=== PATIENT | female | born 1985 | race Caucasian/White ===

== ENCOUNTER 2017-06-18 10:48 | Emergency (ER) | payer MEDICAID, OTHER ==
[~2017-06-18] VITALS: Ht 170.2 cm; Wt 154.2 kg
[2017-06-18 10:55] VITALS: BP_SYST 200
[2017-06-18 11:24] LABS: BASOPHILS # (AUTO) 0.2 K/uL (0.0-0.2); EOSINOPHILS # (AUTO) 0.2 K/uL (0.0-0.4); HEMOGLOBIN 12.8 g/dL (12.0-16.0); LYMPHOCYTES # (AUTO) 2.2 K/uL (1.0-5.5)
[2017-06-18 11:26] LABS: EOSINOPHILS % (AUTO) 1.7 % (0.0-4.0); HEMATOCRIT 38.6 % (36-48); LYMPHOCYTES % (AUTO) 20.6 % (20.5-51.5); MEAN CORPUSCULAR HEMOGLOBIN 28 pg (27-31); MEAN CORPUSCULAR HGB CONC 33 % (32-36); MEAN CORPUSCULAR VOLUME 83 fL (79.0-98.0); MONOCYTES # (AUTO) 1.1 K/uL (0.0-1.0); MONOCYTES % (AUTO) 10.1 % (1.7-9.3); NEUTROPHILS % (AUTO) 65.6 % (40.0-70.0); PLATELET COUNT (AUTO) 322 K/uL (130-430); RED BLOOD CELL COUNT(AUTO) 4.64 MIL/uL (4.2-6.2); RED CELL DISTRIBUTION WIDTH 13.5 % (9.0-15.0); WHITE BLOOD COUNT (AUTO) 10.8 K/uL (4.8-10.8)
[2017-06-18 11:29] LABS: BILIRUBIN,URINE NEGATIVE (NEGATIVE); BLOOD, URINE 2+ (NEGATIVE); CLARITY/URINE HAZY (CLEAR); COLOR,URINE YELLOW (YELLOW); GLUCOSE,URINE NEGATIVE (NEGATIVE); KETONES,URINE NEGATIVE (NEGATIVE); LEUKOCYTE ESTERASE ,URINE NEGATIVE (NEGATIVE); NITRITE, URINE NEGATIVE (NEGATIVE); PH,URINE 7.5 (5.0-8.0); PROTEIN URINE NEGATIVE (NEGATIVE); UROBILINOGEN,URINE 0.2 (0.2-1.0)
[2017-06-18 11:40] LABS: BACTERIA,URINE RARE /HPF (None Seen); RBC,URINE 0-3 /HPF (0-3); URINE AMORPHOUS PHOSPHATES 2+ /HPF (None Seen)
[2017-06-18 11:43] LABS: PROTHROMBIN TIME 10.2 SECS (9.5-12.5)
[2017-06-18] MEDS ORDERED: ACETAMINOPHEN 500 MG TABLET PO ONE (11:45)
[2017-06-18 11:48] LABS: CALCIUM 9.1 mg/dL (8.4-11.0); CREATININE 0.85 mg/dL (0.55-1.30); POTASSIUM 4.2 mmol/L (3.5-5.1)
[2017-06-18 11:52] LABS: ALBUMIN 3.5 g/dL (3.4-4.8); TOTAL BILIRUBIN 0.3 mg/dL (0.0-1.0)
[2017-06-18] MEDS ORDERED: ASPIRIN 325 MG TABLET PO ONE (12:30)
[2017-06-18] MEDS ORDERED: HYDROcodone/ACETAMIN 10-325 MG TAB PO ONE (13:15)
[2017-06-18] MEDS ORDERED: metroNIDAZOLE 500 MG TABLET PO ONE (14:15)
[2017-06-18] MEDS ORDERED: CIPROFLOXACIN HCL 500 MG TABLET PO ONE (14:15)
[2017-06-18] MEDS ORDERED: CIPROFLOXACIN HCL 500 MG TABLET ONE (14:23)
[2017-06-18 14:56] VITALS: BP_SYST 142
== END 2017-06-18 14:56 | disposition home or self-care (01) ==
LOC: SED 10:48
DX: K57.92 Diverticulitis of intestine, part unspecified, without perforation or abscess without bleeding (principal)
CPT/HCPCS: 36415; 76830-TC; 76857; 80053; 81000-TC; 81025; 82150-TC; 83690-TC; 85025; 85610-TC; 99285

== ENCOUNTER 2018-01-18 20:25 | Emergency (ER) | payer MEDICAID, OTHER ==
[~2018-01-18] VITALS: Ht 170.2 cm; Wt 158.8 kg
[2018-01-18 20:30] VITALS: BP_SYST 161
[2018-01-18] MEDS ORDERED: NACL 0.9% 1,000 ML IV ONE (22:07)
[2018-01-18] MEDS ORDERED: MAG HYDROX/AL HYDROX/SIMETH 30 ML, BELLADONNA ALKALOIDS/PHENOBARB 10 ML, LIDOCAINE VISC... PO ONE ×3 (22:15)
[2018-01-18] MEDS ORDERED: METOCLOPRAMIDE HCL 10 MG/2 ML VIAL IVP ONE (22:15)
[2018-01-18] MEDS ORDERED: DIPHENHYDRAMINE INJ 50 MG/ML VIAL IVP ONE (22:15)
[2018-01-18] MEDS ORDERED: FAMOTIDINE PF 20 MG/2 ML VIAL IVP ONE (22:15)
[2018-01-18 22:20] LABS: BILIRUBIN,URINE NEGATIVE (NEGATIVE); BLOOD, URINE 1+ (NEGATIVE); CLARITY/URINE CLEAR (CLEAR); COLOR,URINE YELLOW (YELLOW); GLUCOSE,URINE NEGATIVE (NEGATIVE); KETONES,URINE 1+ (NEGATIVE); LEUKOCYTE ESTERASE ,URINE NEGATIVE (NEGATIVE); NITRITE, URINE NEGATIVE (NEGATIVE); PH,URINE 8.5 (5.0-8.0); PROTEIN URINE 1+ (NEGATIVE); UROBILINOGEN,URINE 0.2 (0.2-1.0)
[2018-01-18 22:27] LABS: BACTERIA,URINE FEW /HPF (None Seen); RBC,URINE 0-3 /HPF (0-3); WBC,URINE 0-3 /HPF (0-3)
[2018-01-18 22:56] LABS: BASOPHILS % (AUTO) 0.1 % (0.0-2.0); EOSINOPHILS # (AUTO) 0.1 K/uL (0.0-0.4); EOSINOPHILS % (AUTO) 0.7 % (0.0-4.0); HEMATOCRIT 42.1 % (36-48); HEMOGLOBIN 13.9 g/dL (12.0-16.0); LYMPHOCYTES # (AUTO) 1.8 K/uL (1.0-5.5); LYMPHOCYTES % (AUTO) 10.7 % (20.5-51.5); MEAN CORPUSCULAR HEMOGLOBIN 27 pg (27-31); MEAN CORPUSCULAR HGB CONC 33 % (32-36); MEAN CORPUSCULAR VOLUME 83 fL (79.0-98.0); MONOCYTES # (AUTO) 1.5 K/uL (0.0-1.0); MONOCYTES % (AUTO) 8.6 % (1.7-9.3); NEUTROPHILS # (AUTO) 13.5 K/uL (1.8-7.7); NEUTROPHILS % (AUTO) 79.9 % (40.0-70.0); PLATELET COUNT (AUTO) 355 K/uL (130-430); RED BLOOD CELL COUNT(AUTO) 5.08 MIL/uL (4.2-6.2); RED CELL DISTRIBUTION WIDTH 13.8 % (9.0-15.0); WHITE BLOOD COUNT (AUTO) 16.9 K/uL (4.8-10.8)
[2018-01-18 23:08] LABS: CALCIUM 9.3 mg/dL (8.4-11.0); CREATININE 0.79 mg/dL (0.55-1.30); POTASSIUM 3.7 mmol/L (3.5-5.1)
[2018-01-18 23:12] LABS: ALBUMIN 3.9 g/dL (3.4-4.8); TOTAL BILIRUBIN 0.5 mg/dL (0.0-1.0)
[2018-01-19] MEDS ORDERED: MORPHINE 4 MG/ML INJ. SYRINGE IVP ONE (00:30)
[2018-01-19 01:40] VITALS: BP_SYST 142
== END 2018-01-19 01:40 | disposition home or self-care (01) ==
LOC: SED 20:25
DX: R10.13 Epigastric pain (principal); R11.2 Nausea with vomiting, unspecified; R19.7 Diarrhea, unspecified
CPT/HCPCS: 36415; 74176; 76705; 80053; 81000; 83690; 85025; 96361; 96374; 96375; 99285; J1200; J2001; J2270; J2765; J3490; J7030

== ENCOUNTER 2018-07-02 23:07 | Emergency (ER) | payer MEDICAID, OTHER ==
[~2018-07-02] VITALS: Ht 167.6 cm; Wt 149.7 kg
[2018-07-02 23:13] VITALS: BP_SYST 158
--- NOTE | 2018-07-03 00:45 | NUR ---
Pt BIB friend to ED C/O acute Abd Pain, intermittent at worse 8/10 sharp. Pt states was admitted to [facility] for Ulcer Dx 6 month ago. Most episodic abd pain has been for 2 days. No other injuries and complaints noted or observed. VSS, no s/s of acute distress. Resting on gurney with rails up
--- NOTE | 2018-07-03 00:47 | NUR ---
Patient to ER bed 4 to gown for evaluation. Side rails up.
[2018-07-03 01:14] LABS: BILIRUBIN,URINE NEGATIVE (NEGATIVE); BLOOD, URINE NEGATIVE (NEGATIVE); CLARITY/URINE CLEAR (CLEAR); COLOR,URINE YELLOW (YELLOW); GLUCOSE,URINE NEGATIVE (NEGATIVE); KETONES,URINE NEGATIVE (NEGATIVE); LEUKOCYTE ESTERASE ,URINE NEGATIVE (NEGATIVE); NITRITE, URINE NEGATIVE (NEGATIVE); PROTEIN URINE NEGATIVE (NEGATIVE); UROBILINOGEN,URINE 0.2 (0.2-1.0)
--- NOTE | 2018-07-03 01:14 | NUR ---
Dr. Faria bedside for pt eval
[2018-07-03] MEDS ORDERED: NACL 0.9% 1,000 ML IV ONE (01:17)
[2018-07-03] MEDS ORDERED: ONDANSETRON HCL 4 MG/2 ML VIAL IVP ONE (01:30)
--- NOTE | 2018-07-03 02:00 | NUR ---
# 24 gauge angiocath placed to RFA. Use of asceptic technique. Opsite placed over site. Blood return noted. Blood for lab drawn from site. Flushed with 10 cc of normal saline. No evidence of infiltration noted. Patient tolerated well.
--- NOTE | 2018-07-03 02:07 | NUR ---
Pt to CT via W/C in stable condition.
--- NOTE | 2018-07-03 02:15 | NUR ---
Pt returns from CT. Pt c/o 12/[address] Faria notified.
[2018-07-03] MEDS ORDERED: MORPHINE 4 MG/ML INJ. SYRINGE IVP ONE ×2 (02:30→04:00)
[2018-07-03 02:36] LABS: BASOPHILS % (AUTO) 0.4 % (0.0-2.0); EOSINOPHILS % (AUTO) 1.8 % (0.0-4.0); HEMATOCRIT 39.5 % (36-48); HEMOGLOBIN 12.9 g/dL (12.0-16.0); LYMPHOCYTES % (AUTO) 26.7 % (20.5-51.5); MEAN CORPUSCULAR HEMOGLOBIN 27 pg (27-31); MEAN CORPUSCULAR HGB CONC 33 % (32-36); MEAN CORPUSCULAR VOLUME 83 fL (79.0-98.0); MONOCYTES % (AUTO) 10.3 % (1.7-9.3); NEUTROPHILS % (AUTO) 60.8 % (40.0-70.0); PLATELET COUNT (AUTO) 310 K/uL (130-430); RED BLOOD CELL COUNT(AUTO) 4.78 MIL/uL (4.2-6.2); RED CELL DISTRIBUTION WIDTH 14.3 % (9.0-15.0); WHITE BLOOD COUNT (AUTO) 11.3 K/uL (4.8-10.8)
[2018-07-03 02:37] LABS: EOSINOPHILS # (AUTO) 0.2 K/uL (0.0-0.4); MONOCYTES # (AUTO) 1.2 K/uL (0.0-1.0); NEUTROPHILS # (AUTO) 6.9 K/uL (1.8-7.7)
[2018-07-03 02:50] LABS: CALCIUM 8.8 mg/dL (8.4-11.0); CREATININE 0.85 mg/dL (0.55-1.30); POTASSIUM 3.8 mmol/L (3.5-5.1); PROTHROMBIN TIME 10.1 SECS (9.5-12.5)
[2018-07-03 02:57] LABS: ALBUMIN 3.7 g/dL (3.4-4.8); TOTAL BILIRUBIN 0.2 mg/dL (0.0-1.0)
--- NOTE | 2018-07-03 03:55 | NUR ---
Pt c/o LLQ abdominal pain 10/14. Dr. Faria notified. Pt to be medicated.
--- NOTE | 2018-07-03 04:00 | NUR ---
VSS, No s/s of acute distress. Resting on gurney with rails up
--- NOTE | 2018-07-03 04:06 | NUR ---
CT SCAN W/CONTRAST CHANGED TO NO CONTRAST BY DR. INFANTE, ER STAFF AND CISTERN ROOM OPERATOR AWARE
--- NOTE | 2018-07-03 04:11 | NUR ---
Pt taken to radiology for CT study
--- NOTE | 2018-07-03 04:28 | NUR ---
Pt back from radiology, well tolerated. VSS, no s/s of acute distress. Resting on gurney with rails up
[2018-07-03] MEDS ORDERED: KETOROLAC TROMETHAMINE 30 MG VIAL IVP ONE (04:45)
--- NOTE | 2018-07-03 05:00 | NUR ---
Pt's friends at bedside for emotional support. VSS, no s/s of acute distress. Resting on gurney with rails up
--- NOTE | 2018-07-03 05:43 | NUR ---
Dr. Faria bedside to update pt
--- NOTE | 2018-07-03 05:55 | NUR ---
Patient states she does not take any prescribed medications.
[2018-07-03] MEDS ORDERED: PIPERACILLIN/TAZO 3.375 GM in NS 50 ML IV ONE (06:00)
[2018-07-03] MEDS ORDERED: metroNIDAZOLE 500 mg/NS 100 ML IV ONE (06:00)
[2018-07-03] MEDS ORDERED: PIPERACILLIN/TAZOBACTAM 3.375 GM/VIAL (ZOSYN) IV ONE (06:11)
--- NOTE | 2018-07-03 06:30 | NUR ---
VSS, No S/S of acute distress. Resting on gurney with rails up. Pt informed she is being transferred to [facility] (within the [facility] network) Pt verbalized understanding
--- NOTE | 2018-07-03 06:50 | NUR ---
*TRANSFER INFO* SPOKE TO [facility] RM: [id number] DR. BROWNE
--- NOTE | 2018-07-03 07:04 | NUR ---
Attempted to give report to [facility] RN for room 423B, was told by [facility] nursing staff that they are changing shift and charge nurse has not assigned RN to that specific room. Dr. Faria aware
[2018-07-03 07:35] VITALS: BP_SYST 145
--- NOTE | 2018-07-03 07:38 | NUR ---
Patient to be transferred to [facility]. Is being transferred due to [place]. Receiving facility has accepting physician and available space. ER physician has signed transfer form. Patient or responsible alliance party has agreed to transfer and signed form. Patient belongings inventoried and will be sent with patient. Copy of nursing notes, lab reports, EKG, Physicians Orders and X-rays to be sent with patient. Report called to Tyree at receiving facility. Receiving physician is MD Ta[facility] been called for transfer. ETA is 0730.
== END 2018-07-03 07:38 | disposition short-term general hospital (02) ==
LOC: SED 23:07
DX: K57.92 Diverticulitis of intestine, part unspecified, without perforation or abscess without bleeding (principal); R03.0 Elevated blood-pressure reading, without diagnosis of hypertension; Z90.49 Acquired absence of other specified parts of digestive tract
CPT/HCPCS: 36415; 74021; 74176; 80053; 81003; 83605; 83690; 85025; 85610; 87040; 96365; 96368; 96375; 96376; 99285; J1885; J2270; J2405; J2543; J3490; J7030

== ENCOUNTER 2019-02-17 00:18 | Emergency (ER) | payer MEDICAID ==
[~2019-02-17] VITALS: Ht 167.6 cm; Wt 111.1 kg
[2019-02-17 00:22] VITALS: BP_SYST 164
--- NOTE | 2019-02-17 00:22 | NUR ---
Patient to ER bed 5 to gown for evaluation. Side rails up. Report given to Hardeep OLIVIER.
--- NOTE | 2019-02-17 00:30 | NUR ---
Pt came in with a complaint of abdominal pain, 12/14. Has history of diverticulitis and no other complaint noted. Denies shortness of breath and no fever noted. Safety precaution observed, will continue to monitor Pt.
--- NOTE | 2019-02-17 00:54 | NUR ---
ER at bedside examining patient.
[2019-02-17] MEDS ORDERED: NACL 0.9% 1,000 ML IV ONE (00:56)
--- NOTE | 2019-02-17 00:56 | NUR ---
DR. LESTER @ BEDSIDE. SEEN AND EXAMINED PT. ORDERS WRITTEN AND CARRIED OUT.
[2019-02-17] MEDS ORDERED: MORPHINE 4 MG/ML INJ. SYRINGE IVP ONE (01:00)
[2019-02-17] MEDS ORDERED: ONDANSETRON HCL 4 MG/2 ML VIAL IVP ONE (01:00)
--- NOTE | 2019-02-17 01:15 | NUR ---
[facility]. IVF INFUSING WELL. MEDICATED ORDERED.
[2019-02-17 01:23] LABS: EOSINOPHILS # (AUTO) 0.2 K/uL (0.0-0.4); HEMOGLOBIN 12.8 g/dL (12.0-16.0); LYMPHOCYTES # (AUTO) 2.5 K/uL (1.0-5.5)
[2019-02-17 01:27] LABS: BASOPHILS # (AUTO) 0.1 K/uL (0.0-0.2); BASOPHILS % (AUTO) 0.6 % (0.0-2.0); EOSINOPHILS % (AUTO) 1.4 % (0.0-4.0); LYMPHOCYTES % (AUTO) 21.4 % (20.5-51.5); MEAN CORPUSCULAR HEMOGLOBIN 28 pg (27-31); MEAN CORPUSCULAR HGB CONC 34 % (32-36); MEAN CORPUSCULAR VOLUME 84 fL (79.0-98.0); MONOCYTES # (AUTO) 1.2 K/uL (0.0-1.0); MONOCYTES % (AUTO) 10.1 % (1.7-9.3); NEUTROPHILS # (AUTO) 7.7 K/uL (1.8-7.7); NEUTROPHILS % (AUTO) 66.5 % (40.0-70.0); PLATELET COUNT (AUTO) 275 K/uL (130-430); RED BLOOD CELL COUNT(AUTO) 4.51 MIL/uL (4.2-6.2); RED CELL DISTRIBUTION WIDTH 14.7 % (9.0-15.0); WHITE BLOOD COUNT (AUTO) 11.6 K/uL (4.8-10.8)
[2019-02-17 01:35] LABS: CALCIUM 8.5 mg/dL (8.4-11.0); CREATININE 0.81 mg/dL (0.55-1.30); POTASSIUM 3.8 mmol/L (3.5-5.1)
[2019-02-17 01:41] LABS: ALBUMIN 3.4 g/dL (3.4-4.8); TOTAL BILIRUBIN 0.3 mg/dL (0.0-1.0)
[2019-02-17 02:00] VITALS: BP_SYST 130
--- NOTE | 2019-02-17 02:00 | NUR ---
Patient given written and verbal discharge instructions and verbalizes understanding. ER MD Uribe discussed with patient the results and treatment provided. Patient in stable condition. ID arm band removed. IV catheter removed intact and dressing applied, no active bleeding. Rx of cipro, flagyl, motrin, ibuprophen given. Patient educated on pain management and to follow up with PMD. Pain Scale 0/10. Opportunity for questions provided and answered. Medication side effect fact sheet provided.
== END 2019-02-17 02:00 | disposition home or self-care (01) ==
LOC: SED 00:18
DX: K57.92 Diverticulitis of intestine, part unspecified, without perforation or abscess without bleeding (principal)
CPT/HCPCS: 36415; 74176; 80053; 81002; 81025; 83690; 85025; 96374; 96375; 99284; J2270; J2405; J7030

== ENCOUNTER 2019-10-30 23:52 | Emergency (ER) | payer MEDICAID, OTHER ==
[~2019-10-30] VITALS: Ht 167.6 cm; Wt 158.8 kg
[2019-10-30 23:52] VITALS: BP_SYST 155
--- NOTE | 2019-10-31 00:58 | NUR ---
Patient to ER bed 04 to gown for evaluation. Side rails up. Report given to SOY Jung.
--- NOTE | 2019-10-31 00:59 | NUR ---
Pt BIB family to ED C/O h/a for 2 days, no hx, tried self medicate with motrin not effective. No other injuries and or complaints noted VSS no s/s of acute distress Resting on gurney rails up
--- NOTE | 2019-10-31 01:06 | NUR ---
Dr. Carrillo bedside for pt eval
[2019-10-31] MEDS ORDERED: DIPHENHYDRAMINE HCL 25 MG CAPSULE PO ONE (01:30)
[2019-10-31] MEDS ORDERED: HYDROcodone/ACETAMIN 5-325 MG TAB (NORCO/ VICODIN) PO ONE (01:30)
[2019-10-31] MEDS ORDERED: METOCLOPRAMIDE HCL 10 MG TABLET PO ONE (01:30)
[2019-10-31 01:45] VITALS: BP_SYST 148
--- NOTE | 2019-10-31 01:45 | NUR ---
Patient given written and verbal discharge instructions and verbalizes understanding. ER MD discussed with patient the results and treatment provided. Patient in stable condition. ID arm band removed. Patient educated on pain management and to follow up with PMD. Pain Scale 0/10 Opportunity for questions provided and answered.
== END 2019-10-31 01:45 | disposition home or self-care (01) ==
LOC: SED 23:52
DX: R51 Headache (principal); I10 Essential (primary) hypertension; F41.9 Anxiety disorder, unspecified
CPT/HCPCS: 81025; 99284; J8597; Q0163

== ENCOUNTER 2021-04-10 08:17 | Emergency (ER) | payer MEDICAID ==
[~2021-04-10] VITALS: Ht 167.6 cm; Wt 158.8 kg
[2021-04-10 08:24] VITALS: BP_SYST 178
--- NOTE | 2021-04-10 08:24 | NUR ---
Patient to ER bed 6 for evaluation. Side rails up. Assumed care.
--- NOTE | 2021-04-10 08:36 | NUR ---
pt. came in with c/o pain to abdomen, LLQ, started about 1 hour ago was 10/, now pain 6/10, has hx. of diverticulitis that causes pain but pt. states this pain is different and very localized to left lower abdomen denies any N/V has some diarrhea but this is pts. norm
--- NOTE | 2021-04-10 08:40 | NUR ---
ER at bedside examining patient.
[2021-04-10] MEDS ORDERED: NACL 0.9% 1,000 ML IV ONE (09:00)
[2021-04-10] MEDS ORDERED: KETOROLAC TROMETHAMINE 30 MG VIAL IVP ONE (09:00)
[2021-04-10] MEDS ORDERED: ONDANSETRON HCL 4 MG/2 ML VIAL IVP ONE (09:00)
--- NOTE | 2021-04-10 09:19 | NUR ---
TO CT SCAN
[2021-04-10 09:45] LABS: BASOPHILS % (AUTO) 0.5 % (0.0-2.0); EOSINOPHILS # (AUTO) 0.2 K/uL (0.0-0.4); EOSINOPHILS % (AUTO) 2.3 % (0.0-4.0); HEMATOCRIT 40.3 % (36-48); LYMPHOCYTES # (AUTO) 2.4 K/uL (1.0-5.5); LYMPHOCYTES % (AUTO) 28.1 % (20.5-51.5); MEAN CORPUSCULAR HEMOGLOBIN 28 pg (27-31); MEAN CORPUSCULAR HGB CONC 32 % (32-36); MEAN CORPUSCULAR VOLUME 85 fL (79.0-98.0); MONOCYTES % (AUTO) 11.7 % (1.7-9.3); NEUTROPHILS # (AUTO) 4.8 K/uL (1.8-7.7); NEUTROPHILS % (AUTO) 57.4 % (40.0-70.0); PLATELET COUNT (AUTO) 270 K/uL (130-430); RED BLOOD CELL COUNT(AUTO) 4.73 MIL/uL (4.2-6.2); RED CELL DISTRIBUTION WIDTH 14.3 % (9.0-15.0); WHITE BLOOD COUNT (AUTO) 8.4 K/uL (4.8-10.8)
[2021-04-10 10:05] LABS: CALCIUM 8.5 mg/dL (8.4-11.0); CREATININE 0.66 mg/dL (0.55-1.30); POTASSIUM 4.5 mmol/L (3.5-5.1)
[2021-04-10 10:09] LABS: BILIRUBIN,URINE NEGATIVE (NEGATIVE); BLOOD, URINE 1+ (NEGATIVE); CLARITY/URINE SL CLOUDY (CLEAR); COLOR,URINE YELLOW (YELLOW); GLUCOSE,URINE NEGATIVE (NEGATIVE); KETONES,URINE NEGATIVE (NEGATIVE); LEUKOCYTE ESTERASE ,URINE NEGATIVE (NEGATIVE); NITRITE, URINE NEGATIVE (NEGATIVE); PH,URINE 5.5 (5.0-8.0); PROTEIN URINE NEGATIVE (NEGATIVE); UROBILINOGEN,URINE 0.2 (0.2-1.0)
[2021-04-10 10:10] LABS: ALBUMIN 3.2 g/dL (3.4-4.8); TOTAL BILIRUBIN 0.1 mg/dL (0.0-1.0)
[2021-04-10 10:33] LABS: BACTERIA,URINE FEW /HPF (None Seen)
[2021-04-10] MEDS ORDERED: ACETAMINOPHEN 325 MG TABLET PO ONE (11:45)
[2021-04-10 11:49] VITALS: BP_SYST 138
--- NOTE | 2021-04-10 11:50 | NUR ---
Patient given written and verbal discharge instructions and verbalizes understanding. Dr. Tse discussed with patient the results and treatment provided. Patient in stable condition. ID arm band removed. IV catheter removed intact and dressing applied, no active bleeding. Rx of [employer] and Motrin given. Patient educated on pain management and to follow up with PMD. Pain Scale 5. Opportunity for questions provided and answered. Medication side effect fact sheet provided.
== END 2021-04-10 11:49 | disposition home or self-care (01) ==
LOC: SED 08:17
DX: N13.2 Hydronephrosis with renal and ureteral calculous obstruction (principal)
CPT/HCPCS: 36415; 74176; 76376; 80053; 81000; 81025; 85025; 96361; 96374; 96375; 99284; J1885; J2405; J7030